=== PATIENT | male | born 1975 | race Caucasian/White ===

== ENCOUNTER 2017-12-20 15:14 | Inpatient (IN) | payer BC ==
[2017-12-20 16:47] VITALS: BMI 26.8
[2017-12-20] MEDS ORDERED: IBUPROFEN 400 MG TABLET (FP) PO PRN (19:13)
[2017-12-20] MEDS ORDERED: ACETAMINOPHEN 325 MG TABLET (FP) PO PRN (19:13)
[2017-12-20] MEDS ORDERED: guaiFENesin/D-METHORPHAN HB 10 ML UNIT-DOSE CUPS PO PRN (19:13)
[2017-12-20] MEDS ORDERED: MENTHOL/PHENOL 1 EACH UD MM PRN (19:13)
[2017-12-20] MEDS ORDERED: MAGNESIUM CITRATE 300 ML BOTTLE PO PRN (19:13)
[2017-12-20] MEDS ORDERED: LOPERAMIDE HCL 2 MG CAPSULE PO PRN (19:13)
[2017-12-20] MEDS ORDERED: MAGNESIUM HYDROX 2400MG/30ML ORAL SUSPENSION 30 ML CUP PO PRN (19:13)
[2017-12-20] MEDS ORDERED: MAG HYDROX/AL HYDROX/SIMETH 30 ML UNIT-DOSE CUP PO PRN (19:13)
[2017-12-20] MEDS ORDERED: P-EPHED 60MG/TRIPROLIDI 2.5MG TABLET PO PRN (19:13)
[2017-12-20] MEDS ORDERED: NICOTINE POLACRILEX 2 MG GUM BC PRN (19:13)
--- NOTE | 2017-12-20 19:13 | HP ---
COWS - Scale Resting Pulse: 0= DC 80 or Below Sweatin= Chills/Flushing Restless Observation: 1= Difficult to Sit Still Pupil Size: 1= Pupils >than Normal Bone or Joint Aches: 1= Mild Discomfort Runny Nose/ Eye Tearin= Runny Nose/Eyes GI Upset > 30mins: 3= Vomiting/Diarrhea Tremor Observation: 2= Slight Tremor Visible Yawning Observation: 1= 1-2x During Session Anxiety or Irritability: 2=Irritable/Anxious Goose Flesh Skin: 3=Piloerection COWS Score: 17 Admission ROS S - HPI Chief Complaint: " I'm trying to get my life together, I don't feel well." opioid withdrawal symptoms Allergies/Adverse Reactions: Allergies Allergy/AdvReac Type Severity Reaction Status Date / Time No Known Allergies Allergy Verified 12/20/17 17:30 History of Present Illness: 42 yo male with hx IV heroin, IV cocaine "speed ball", and nicotine and dependence is here seeking detox, reports first time seeking Drug treatment. Denies seizures, OD, blackouts. PMHX: Hep C, depression, insomnia. Denies suicidal / homicidal ideation or suicide attempts. Reports no significant period of sobriety. Exam Limitations: No Limitations - Ebola screening Have you traveled outside of the country in the last 21 days: No (N) Have you had contact with anyone from an Ebola affected area: No Have you been sick,other than usual withdrawal symptoms: No Do you have a fever: No - Review of Systems Constitutional: Chills, Diaphoresis, Loss of Appetite, Changes in sleep, Unintentional Wgt. Loss EENT: reports: No Symptoms Reported Respiratory: reports: No Symptoms reported Cardiac: reports: No Symptoms Reported GI: reports: Nausea, Poor Appetite, Poor Fluid Intake, Vomiting : reports: No Symptoms Reported Musculoskeletal: reports: Back Pain, Joint Pain Integumentary: reports: No Symptoms Reported Neuro: reports: No Symptoms reported Endocrine: reports: Increased Thirst Hematology: reports: No Symptoms Reported Psychiatric: reports: Orientated x3, Depressed Other Systems: Reviewed and Negative Patient History - Patient Medical History Hx Anemia: No Hx Asthma: No Hx Chronic Obstructive Pulmonary Disease (COPD): No Hx Cancer: No Hx Cardiac Disorders: No Hx Congestive Heart Failure: No Hx Hypertension: No Hx Hypercholesterolemia: No Hx Pacemaker: No HX Cerebrovascular Accident: No Hx Seizures: No Hx Dementia: No Hx Diabetes: No Hx Gastrointestinal Disorders: No Hx Liver Disease: Yes (Hep C ) Hx Genitourinary Disorders: No Hx Sexually Transmitted Disorders: No Hx Renal Disease (ESRD): No Hx Thyroid Disease: No Hx Human Immunodeficiency Virus (HIV): No (declines HIV testing ) Hx Hepatitis C: Yes Hx Depression: Yes Hx Suicide Attempt: No Hx Bipolar Disorder: No Hx Schizophrenia: No - Patient Surgical History Past Surgical History: No Hx Neurologic Surgery: No Hx Cataract Extraction: No Hx Cardiac Surgery: No Hx Lung Surgery: No Hx Breast Surgery: No Hx Breast Biopsy: No Hx Abdominal Surgery: No Hx Appendectomy: No Hx Cholecystectomy: No Hx Genitourinary Surgery: No Hx Section: No Hx Orthopedic Surgery: No Anesthesia Reaction: No - PPD History Previous Implant?: Yes Documented Results: Negative w/o proof PPD to be Administered?: Yes - Smoking Cessation Smoking history: Current every day smoker Have you smoked in the past 12 months: Yes Aproximately how many cigarettes per day: 10 Hx Chewing Tobacco Use: No Initiated information on smoking cessation: Yes 'Breaking Loose' booklet given: 12/20/17 - Substance & Tx. History Hx Alcohol Use: Yes Hx Substance Use: Yes Substance Use Type: Cocaine, Heroin Hx Substance Use Treatment: No - Substances Abused Heroin Route: Injection Frequency: Daily Amount used: 20 BAGS Age of first use: 23 Date of Last Use: 12/20/17 Cocaine Route: Injection Frequency: Daily Amount used: 20 BAGS Age of first use: 23 Date of Last Use: 12/20/17 Family Disease History - Family Disease History Family History: Unable to Obtain Admission Physical Exam S - Vital Signs Vital Signs: Vital Signs - 24 hr 12/20/17 16:45 Temperature 99.3 F Pulse Rate 61 Respiratory 18 Rate Blood Pressure 108/67 - Physical General Appearance: Yes: Disheveled, Moderate Distress, Thin, Tremorous, Sweating HEENTM: Yes: EOMI, Hearing grossly Normal, Normal ENT Inspection, Normocephalic , Normal Voice, NICOLASA, Pharynx Normal, Tm's normal Respiratory: Yes: Chest Non-Tender, Lungs Clear, Normal Breath Sounds, No Respiratory Distress, No Accessory Muscle Use Neck: Yes: Within Normal Limits Breast: Yes: Breast Exam Deferred Cardiology: Yes: Regular Rhythm, Regular Rate Abdominal: Yes: Normal Bowel Sounds, Non Tender, Flat, Soft Genitourinary: Yes: Within Normal Limits Back: Yes: Normal Inspection Musculoskeletal: Yes: full range of Motion, Gait Steady, Pelvis Stable, Back pain Extremities: Yes: Normal Capillary Refill, Normal Inspection, Normal Range of Motion, Non-Tender Neurological: Yes: software specialist II-XII NML intact, Fully Oriented, Alert, Motor Strength 5/5, Normal Response, Depressed Affect Integumentary: Yes: Normal Color, Warm, Diaphoresis, Track Melgar (bilateral forearms and neck , no infection present) Lymphatic: Yes: Within Normal Limits - Diagnostic (1) IV drug user Current Visit: Yes Status: Acute (2) Cocaine dependence Current Visit: Yes Status: Acute Qualifiers: Substance use status: uncomplicated Qualified Code(s): F14.20 - Cocaine dependence, uncomplicated (3) Opioid dependence with withdrawal Current Visit: Yes Status: Acute (4) Nausea and vomiting Current Visit: Yes Status: Acute Qualifiers: Vomiting Intractability: unspecified (5) Hepatitis C Current Visit: Yes Status: Chronic Qualifiers: Viral hepatitis chronicity: chronic (6) Depressed mood Current Visit: Yes Status: Acute Cleared for Admission [facility] - Detox or Rehab [facility] Level of Care: Medically Managed Detox Regimen/Protocol: Methadone [facility] Breath Alcohol Content Breath Alcohol Content: 0 Urine Drug Screen - Results Drug Screen Negative: No Urine Drug Screen Results: JODEE-Cocaine, OPI-Opiates, OXY-Oxycodone
[2017-12-20] MEDS ORDERED: METHADONE HCL 10 MG TABLET (FOR DETOX USE ONLY) PO ONE ×2 (19:45→23:00)
[2017-12-20] MEDS: diazePAM 5 MG TABLET PO PRN (20:07)
[2017-12-20 21:12] LABS: URINE APPEARANCE SLCLOUDY; URINE BILIRUBIN NEGATIVE (<2.0 mg/dL); URINE COLOR AMBER; URINE GLUCOSE (UA) NEGATIVE (NEGATIVE); URINE KETONE NEGATIVE (NEGATIVE); URINE LEUK ESTERASE NEGATIVE (NEGATIVE); URINE NITRITE NEGATIVE (NEGATIVE); URINE UROBILINOGEN 4.0 E.U/dl mg/dL (0.2-1.0)
[2017-12-20 21:18] LABS: URINE PROTEIN 1+ (NEGATIVE)
[2017-12-20 21:24] LABS: EPI CELLS RARE /HPF (FEW); GRANULAR CASTS 4 /lpf; URINE HYALINE CAST 4 /lpf; URINE MUCUS MANY
[2017-12-20] MEDS ORDERED: MELATONIN 5 MG TABLETS PO PRN (22:00)
[2017-12-20] MEDS: THIAMINE HCL 100 MG TABLET (FP) PO SCH (22:44)
[2017-12-21] MEDS: ONDANSETRON *ODT* 4 MG TABLET SL PRN (04:26)
[2017-12-21] MEDS: diazePAM 5 MG TABLET PO PRN ×2 (09:32→23:02)
[2017-12-21] MEDS ORDERED: METHADONE HCL 10 MG TABLET (FOR DETOX USE ONLY) PO ONE (10:00)
[2017-12-21 10:03] LABS: HEMATOCRIT 41.6 % (35.4-49); HEMOGLOBIN 14.3 GM/dL (11.7-16.9); MCHC 34.3 g/dl (32.0-35.9); MEAN CELL VOLUME 93.2 fl (80-96); MEAN PLT VOLUME 9.3 fl (7.5-11.1); PLATELET COUNT 183 K/MM3 (134-434); RBC 4.47 M/mm3 (4.00-5.60); RDW 11.7 % (11.9-15.9); WHITE BLOOD COUNT 10.3 K/mm3 (4.0-10.0)
[2017-12-21 10:06] LABS: ALBUMIN 3.9 g/dl (3.4-5.0); ANION GAP 8 (8-16); BLOOD UREA NITROGEN 20 mg/dL (7-18); CALCIUM 9.3 mg/dL (8.5-10.1); CHLORIDE 101 mmol/L (98-107); CO2 28 mmol/L (21-32); SODIUM 137 mmol/L (136-145)
--- NOTE | 2017-12-21 10:08 | EKG ---
Test Reason : Blood Pressure : / mmHG Vent. Rate : 056 BPM Atrial Rate : 056 BPM P-R Int : 180 ms QRS Dur : 088 ms QT Int : 454 ms P-R-T Axes : 013 052 022 degrees QTc Int : 438 ms SINUS BRADYCARDIA OTHERWISE NORMAL ECG NO PREVIOUS ECGS AVAILABLE Confirmed by MEENA MARTÍNEZ, ANDI ([id number]) on 12/21/2017 10:08:09 AM Referred By: Confirmed By:ANDI ROBLEDO MD
[2017-12-21] MEDS: PRENATAL VITAMINS W/ FOLIC ACID TABLET (FP) PO SCH (10:11)
[2017-12-21] MEDS: NICOTINE 14 MG/24 HOURS TOPICAL PATCH TD SCH (10:13)
[2017-12-21 10:31] LABS: ALK PHOS 81 U/L (45-117); GLUCOSE,RANDOM 104 mg/dL (74-106); SGOT/AST 44 U/L (15-37); SGPT/ALT 57 U/L (12-78); TOT PROT 8.7 g/dl (6.4-8.2)
--- NOTE | 2017-12-21 12:54 | PN ---
[facility] COWS - Scale Resting Pulse: 0= [place] 80 or Below Sweatin= Chills/Flushing Restless Observation: 1= Difficult to Sit Still Pupil Size: 0= Normal to Room Light Bone or Joint Aches: 2= Severe Diffuse Aches Runny Nose/ Eye Tearin= None GI Upset > 30mins: 3= Vomiting/Diarrhea Tremor Observation of Outstretched Hands: 0= None Yawning Observation: 1= 1-2x During Session Anxiety or Irritability: 2=Irritable/Anxious Goose Flesh Skin: 3=Piloerection COWS Score: 13 [facility] Progress Note (SOAP) Subjective: Fatigue, Vomiting, Body Aches, Anxious. Objective: PATIENT A & O X 2 (UNCERTAIN ABOUT CURRENT DAY / DATE). PATIENT OBSERVED AMBULATING ON UNIT. NO ACUTE DISTRESS. 12/21/17 12:52 Vital Signs Temperature 99.5 F 12/21/17 07:30 Pulse Rate 53 L 12/21/17 07:30 Respiratory Rate 18 12/21/17 07:30 Blood Pressure 113/62 12/21/17 07:30 O2 Sat by Pulse Oximetry (%) Laboratory Tests 12/20/17 12/21/17 12/21/17 20:30 06:30 06:30 WBC 10.3 H RBC 4.47 Hgb 14.3 Hct 41.6 MCV 93.2 MCH 32.0 MCHC 34.3 RDW 11.7 L Plt Count 183 MPV 9.3 Sodium 137 Potassium 4.0 Chloride 101 Carbon Dioxide 28 Anion Gap 8 BUN 20 H Creatinine 1.0 Creat Clearance w eGFR > 60 Random Glucose 104 Calcium 9.3 Total Bilirubin 1.0 AST 44 H ALT 57 Alkaline Phosphatase 81 Total Protein 8.7 H Albumin 3.9 Urine Color [place] Urine Appearance Slcloudy Urine pH 5.0 Ur Specific [place] 1.025 Urine Protein 1+ H Urine Glucose (UA) Negative Urine Ketones Negative Urine Blood Negative Urine Nitrite Negative Urine Bilirubin Negative Urine Urobilinogen 4.0 e.u/dl Ur Leukocyte Esterase Negative Urine WBC (Auto) 3 Urine RBC (Auto) 1 Ur Epithelial Cells Rare Hyaline Casts 4 Granular Casts 4 Urine Mucus Many RPR Titer 12/21/17 06:30 WBC RBC Hgb Hct MCV MCH MCHC RDW Plt Count MPV Sodium Potassium Chloride Carbon Dioxide Anion Gap BUN Creatinine Creat Clearance w eGFR Random Glucose Calcium Total Bilirubin AST ALT Alkaline Phosphatase Total Protein Albumin Urine Color Urine Appearance Urine pH Ur Specific [place] Urine Protein Urine Glucose (UA) Urine Ketones Urine Blood Urine Nitrite Urine Bilirubin Urine Urobilinogen Ur Leukocyte Esterase Urine WBC (Auto) Urine RBC (Auto) Ur Epithelial Cells Hyaline Casts Granular Casts Urine Mucus RPR Titer Nonreactive LABS NOTED. Assessment: 12/21/17 12:53 WITHDRAWAL SYMPTOMS. Plan: CONTINUE DETOX. PRN ZOFRAN SL FOR VOMITING. INCREASE DAILY PO FLUID INTAKE.
--- NOTE | 2017-12-21 14:20 | CONSULT ---
[facility] Psychiatric Consult - Data Date of interview: 12/21/17 Admission source: [facility] Identifying data: First admission to [facility] for this 42 y/o male seeking detox treatment on for heroin,cocaine and amphetamine dependence.Patient is single,a father of two,homeless,unemployed and reportedly deprived of any source of income. Substance Abuse History: Confirmed by the patient in my interview.Smoking history: Current every day smoker. Have you smoked in the past 12 months: Yes. Aproximately how many cigarettes per day: 10. Hx Chewing Tobacco Use: No. Initiated information on smoking cessation: Yes. 'Breaking Loose' booklet given : 12/20/17. - Substance & Tx. History. Hx Alcohol Use: Yes. Hx Substance Use : Yes. Substance Use Type: Cocaine, Heroin. Hx Substance Use Treatment: No. - Substances Abused. Heroin. Route: Injection. Frequency: Daily. Amount used: 20 BAGS. Age of first use: 23. Date of Last Use: 12/20/17. Cocaine. Route: Injection. Frequency: Daily. Amount used: 20 BAGS. Age of first use : 23. Date of Last Use: 12/20/17 Medical History: Hepatitis C. Psychiatric History: Patient denies. Physical/Sexual Abuse/Trauma History: Patient denies. Additional Comment: Urine Drug Screen Results: JODEE-Cocaine, OPI-Opiates, OXY- Oxycodone.Noted. Mental Status Exam - Mental Status Exam Alert and Oriented to: Time, Place, Person Cognitive Function: Grossly Intact Patient Appearance: Disheveled Mood: Angry, Hostile, Withdrawn, Irritable Affect: Mood Congruent Patient Behavior: Fatigued, Uncooperative Speech Pattern: Clear (in [place] ; poor coomunication in [place]) Voice Loudness: Normal Thought Process: Goal Oriented Thought Disorder: Not Present Hallucinations: Denies Suicidal Ideation: Denies Homicidal Ideation: Denies Insight/Judgement: Poor Sleep: Fair Appetite: Good Muscle strength/Tone: Normal (no complaint offered) Gait/Station: Other (not observed ; patient ignored instruction to get out of bed) Psychiatric Findings - Problem List ([place] 1, 2,3) (1) Opioid dependence with withdrawal Current Visit: Yes Status: Acute (2) Cocaine dependence Current Visit: Yes Status: Acute Qualifiers: Substance use status: uncomplicated Qualified Code(s): F14.20 - Cocaine dependence, uncomplicated (3) Nicotine dependence Current Visit: Yes Status: Acute (4) Substance induced mood disorder Current Visit: Yes Status: Suspected - Initial Treatment Plan Initial Treatment Plan: Psychoeducation.Sleep hygiene.Detoxification in progress.Observation.
[2017-12-21] MEDS: THIAMINE HCL 100 MG TABLET (FP) PO SCH (23:02)
[2017-12-22] MEDS ORDERED: METHADONE HCL 5 MG TABLET (FOR DETOX USE ONLY) PO ONE (10:00)
[2017-12-22] MEDS: PRENATAL VITAMINS W/ FOLIC ACID TABLET (FP) PO SCH (10:45)
[2017-12-22] MEDS: NICOTINE 14 MG/24 HOURS TOPICAL PATCH TD SCH (10:46)
[2017-12-22] MEDS: ONDANSETRON *ODT* 4 MG TABLET SL PRN ×2 (10:52→23:08)
--- NOTE | 2017-12-22 13:05 | PN ---
S COWS - Scale Resting Pulse: 0= [place] 80 or Below Sweatin= Chills/Flushing Restless Observation: 0= Sits Still Pupil Size: 0= Normal to Room Light Bone or Joint Aches: 1= Mild Discomfort Runny Nose/ Eye Tearin= Nasal Congestion GI Upset > 30mins: 3= Vomiting/Diarrhea Tremor Observation of Outstretched Hands: 0= None Yawning Observation: 1= 1-2x During Session Anxiety or Irritability: 2=Irritable/Anxious Goose Flesh Skin: 3=Piloerection COWS Score: 12 [facility] Progress Note (SOAP) Subjective: Anxious, Vomiting, Diarrhea, Body Aches. Objective: 12/22/17 13:03 Vital Signs Temperature 99.1 F 12/22/17 09:34 Pulse Rate 50 L 12/22/17 09:34 Respiratory Rate 18 12/22/17 09:34 Blood Pressure 117/76 12/22/17 09:34 O2 Sat by Pulse Oximetry (%) Laboratory Tests 12/20/17 12/21/17 12/21/17 20:30 06:30 06:30 WBC 10.3 H RBC 4.47 Hgb 14.3 Hct 41.6 MCV 93.2 MCH 32.0 MCHC 34.3 RDW 11.7 L Plt Count 183 MPV 9.3 Sodium 137 Potassium 4.0 Chloride 101 Carbon Dioxide 28 Anion Gap 8 BUN 20 H Creatinine 1.0 Creat Clearance w eGFR > 60 Random Glucose 104 Calcium 9.3 Total Bilirubin 1.0 AST 44 H ALT 57 Alkaline Phosphatase 81 Total Protein 8.7 H Albumin 3.9 Urine Color [place] Urine Appearance Slcloudy Urine pH 5.0 Ur Specific [place] 1.025 Urine Protein 1+ H Urine Glucose (UA) Negative Urine Ketones Negative Urine Blood Negative Urine Nitrite Negative Urine Bilirubin Negative Urine Urobilinogen 4.0 e.u/dl Ur Leukocyte Esterase Negative Urine WBC (Auto) 3 Urine RBC (Auto) 1 Ur Epithelial Cells Rare Hyaline Casts 4 Granular Casts 4 Urine Mucus Many RPR Titer 12/21/17 06:30 WBC RBC Hgb Hct MCV MCH MCHC RDW Plt Count MPV Sodium Potassium Chloride Carbon Dioxide Anion Gap BUN Creatinine Creat Clearance w eGFR Random Glucose Calcium Total Bilirubin AST ALT Alkaline Phosphatase Total Protein Albumin Urine Color Urine Appearance Urine pH Ur Specific [place] Urine Protein Urine Glucose (UA) Urine Ketones Urine Blood Urine Nitrite Urine Bilirubin Urine Urobilinogen Ur Leukocyte Esterase Urine WBC (Auto) Urine RBC (Auto) Ur Epithelial Cells Hyaline Casts Granular Casts Urine Mucus RPR Titer Nonreactive LABS NOTED. Assessment: 12/22/17 13:04 WITHDRAWAL SYMPTOMS. Plan: CONTINUE DETOX. INCREASE DAILY PO FLUID INTAKE. PRN IMMODIUM FOR DIARRHEA. PRN ZOFRAN SL FOR NAUSEA/VOMITING.
[2017-12-22 21:45] VITALS: PULSE 56
[2017-12-22] MEDS: THIAMINE HCL 100 MG TABLET (FP) PO SCH (23:05)
[2017-12-23 09:17] VITALS: BP 121/78; TEMP 99.1
[2017-12-23] MEDS: ONDANSETRON *ODT* 4 MG TABLET SL PRN (09:27)
[2017-12-23] MEDS ORDERED: METHADONE HCL 5 MG TABLET (FOR DETOX USE ONLY) PO ONE (10:00)
--- NOTE | 2017-12-23 12:02 | DS ---
[facility] Detox Discharge Summary Admission Date: 12/20/17 Discharge Date: 12/23/17 - History Present History: Cocaine Dependence, Opioid Dependence Additional Comments: PATIENT DOES NOT WISH TO REMAIN TO COMPLETE DETOX REGIMEN. RISKS OF LEAVING DETOX UNIT AGAINST MEDICAL ADVICE AND PRIOR TO COMPLETION OF DETOX REGIMEN EXPLAINED TO PATIENT. PATIENT ADVISED TO GO IMMEDIATELY TO NEAREST ER SHOULD ANY INTOLERABLE DETOX SYMPTOMS DEVELOP AT ANY TIME. PATIENT LEFT DETOX UNIT IN STABLE MEDICAL CONDITION. Pertinent Past History: Depression, Hep C, Nausea / Vomiting, Nicotine Dependence. - Physical Exam Results Vital Signs: Vital Signs Temperature 99.1 F 12/23/17 09:17 Pulse Rate 56 L 12/23/17 09:17 Respiratory Rate 16 12/23/17 09:17 Blood Pressure 121/78 12/23/17 09:17 O2 Sat by Pulse Oximetry (%) Pertinent Admission Physical Exam Findings: WITHDRAWAL SYMPTOMS. Laboratory Tests 12/20/17 12/21/17 12/21/17 20:30 06:30 06:30 WBC 10.3 H RBC 4.47 Hgb 14.3 Hct 41.6 MCV 93.2 MCH 32.0 MCHC 34.3 RDW 11.7 L Plt Count 183 MPV 9.3 Sodium 137 Potassium 4.0 Chloride 101 Carbon Dioxide 28 Anion Gap 8 BUN 20 H Creatinine 1.0 Creat Clearance w eGFR > 60 Random Glucose 104 Calcium 9.3 Total Bilirubin 1.0 AST 44 H ALT 57 Alkaline Phosphatase 81 Total Protein 8.7 H Albumin 3.9 Urine Color [place] Urine Appearance Slcloudy Urine pH 5.0 Ur Specific [place] 1.025 Urine Protein 1+ H Urine Glucose (UA) Negative Urine Ketones Negative Urine Blood Negative Urine Nitrite Negative Urine Bilirubin Negative Urine Urobilinogen 4.0 e.u/dl Ur Leukocyte Esterase Negative Urine WBC (Auto) 3 Urine RBC (Auto) 1 Ur Epithelial Cells Rare Hyaline Casts 4 Granular Casts 4 Urine Mucus Many RPR Titer 12/21/17 06:30 WBC RBC Hgb Hct MCV MCH MCHC RDW Plt Count MPV Sodium Potassium Chloride Carbon Dioxide Anion Gap BUN Creatinine Creat Clearance w eGFR Random Glucose Calcium Total Bilirubin AST ALT Alkaline Phosphatase Total Protein Albumin Urine Color Urine Appearance Urine pH Ur Specific [place] Urine Protein Urine Glucose (UA) Urine Ketones Urine Blood Urine Nitrite Urine Bilirubin Urine Urobilinogen Ur Leukocyte Esterase Urine WBC (Auto) Urine RBC (Auto) Ur Epithelial Cells Hyaline Casts Granular Casts Urine Mucus RPR Titer Nonreactive LABS NOTED. - Treatment Hospital Course: Detoxed Safely - Medication Discharge Medications: Ambulatory Orders NK [No Known Home Medication] 12/20/17 - Diagnosis (1) Cocaine dependence Status: Acute Qualifiers: Substance use status: uncomplicated Qualified Code(s): F14.20 - Cocaine dependence, uncomplicated (2) Depressed mood Status: Acute (3) IV drug user Status: Acute (4) Nausea and vomiting Status: Acute Qualifiers: Vomiting type: unspecified Vomiting Intractability: intractable Qualified Code(s): R11.2 - Nausea with vomiting, unspecified (5) Opioid dependence with withdrawal Status: Acute (6) Hepatitis C Status: Chronic Qualifiers: Viral hepatitis chronicity: chronic Hepatic coma status: without hepatic coma Qualified Code(s): B18.2 - Chronic viral hepatitis C (7) Nicotine dependence Status: Acute (8) Substance induced mood disorder Status: Suspected - AMA Did Patient Leave Against Medical Advice: Yes (PATIENT DID NOT WISH TO REMAIN TO COMPLETE DETOX REGIMEN.)
[2017-12-24] MEDS ORDERED: METHADONE HCL 10 MG TABLET (FOR DETOX USE ONLY) PO ONE (10:00)
[2017-12-25] MEDS ORDERED: METHADONE HCL 5 MG TABLET (FOR DETOX USE ONLY) PO ONE (06:00)
== END 2017-12-23 09:45 | disposition left against medical advice (07) | DRG 770 ==
LOC: YASAS 15:14 → Y3N 18:16
PROVIDERS: ADMIT Surgery; ATTEND Surgery
PROC: HZ2ZZZZ Detoxification Services for Substance Abuse Treatment (ICD-10-PCS; principal; 2017-12-20)
DX: F11.23 Opioid dependence with withdrawal (principal); F14.20 Cocaine dependence, uncomplicated; F17.210 Nicotine dependence, cigarettes, uncomplicated; F19.24 Other psychoactive substance dependence with psychoactive substance-induced mood disorder; F32.9 Major depressive disorder, single episode, unspecified; B18.2 Chronic viral hepatitis C; R11.2 Nausea with vomiting, unspecified; Z59.0 Homelessness
CPT/HCPCS: 36415; 80053; 81003; 81015; 85027; 86593; 93005; 93010; Q0162